=== PATIENT | female | born 1965 | race Caucasian/White ===

== ENCOUNTER → 2017-07-26 | Outpatient (CLI) | payer BC | LOC: RAD 17:30 | DX: M79.89 Other specified soft tissue disorders (principal) ==

== ENCOUNTER → 2019-03-04 | Outpatient (CLI) | payer BC ==
[2019-03-04 17:41] LABS: EOS # 0.1 (0.04-0.40); HEMATOCRIT 53.4 % (37.0-47.0); HEMOGLOBIN 18.7 g/dL (12.5-16.0); LYMPH# 2.9 (1.50-4.00); MEAN CELL VOLUME 101 fl (78-100); MEAN CORPUSCULAR HEMOGLOBIN 35 pg (27-31); MEAN CORPUSCULAR HGB CONC 35 g/dL (33-37); MEAN PLATELET VOLUME 9.3 fl (7.4-10.4); MONO # 0.6 (0.20-0.80); NEU # 4.3 (1.40-6.50); PLATELET COUNT 241 K/mm3 (130-400); RED BLOOD COUNT 5.31 M/mm3 (4.10-5.30); RED CELL DISTRIBUTION WIDTH 13.6 % (11.5-14.5)
[2019-03-04 17:53] LABS: ALBUMIN 4.6 g/dL (3.5-5.0)
[2019-03-04 17:54] LABS: CALCIUM 10.5 mg/dL (8.3-10.5)
[2019-03-04 17:55] LABS: TOTAL PROTEIN 7.9 g/dL (6.4-8.3)
[2019-03-04 17:57] LABS: TOTAL BILIRUBIN 0.6 mg/dL (0.2-1.2)
== END ==
LOC: LAB 17:30
PROVIDERS: Family Medicine
DX: Z00.00 Encounter for general adult medical examination without abnormal findings (principal); E78.5 Hyperlipidemia, unspecified

== ENCOUNTER → 2019-03-27 | Outpatient (CLI) | payer BC ==
[2019-03-27 10:03] LABS: HEMOGLOBIN 17.8 g/dL (12.5-16.0)
== END ==
LOC: LAB 09:51
PROVIDERS: Family Medicine
DX: D75.1 Secondary polycythemia (principal)

== ENCOUNTER → 2019-03-31 | Day surgery (SDC) | payer BC | LOC: MSO 09:43 | DX: Z12.11 Encounter for screening for malignant neoplasm of colon (principal); K63.5 Polyp of colon; F17.210 Nicotine dependence, cigarettes, uncomplicated; Z79.82 Long term (current) use of aspirin | CPT/HCPCS: 00811; J2704; J7120 ==

== ENCOUNTER → 2020-09-15 | Outpatient (CLI) | payer BC | LOC: RAD 10:46 | DX: M79.675 Pain in left toe(s) (principal) ==

== ENCOUNTER 2021-09-17 10:57 | Emergency (ER) | payer BC ==
[~2021-09-17] VITALS: Ht 167.6 cm; Wt 63.6 kg
[2021-09-17] MEDS ORDERED: ADALAT CC90 M1 PO (11:40)
[2021-09-17] MEDS ORDERED: MORGIDOX 1X100100 MG PO (12:03)
[2021-09-17 12:17] VITALS: BP 123/75
== END 2021-09-17 12:25 | disposition home or self-care (01) ==
LOC: ED 10:57
DX: L72.3 Sebaceous cyst (principal); I10 Essential (primary) hypertension; Z79.899 Other long term (current) drug therapy